=== PATIENT | female | born 1950 | race Hispanic/Latino ===

== ENCOUNTER → 2018-01-09 | Outpatient (CLI) | payer OTHER, MEDICARE ==
[~2018-01-09] MED LIST: ALEN70TA47 PO; ASPI-555 PO; CALC-866 PO; CALC600T12 PO; LINA5TAB PO; METF500T6 PO; SIMV10TA6 PO; VALS320T16 PO; VITA1CAP85 PO
== END | disposition home or self-care (01) ==
LOC: RAH 08:58
PROVIDERS: ATTEND Nurse Practitioner Family
DX: M79.651 Pain in right thigh (principal)
CPT/HCPCS: 73552

== ENCOUNTER → 2018-10-09 | Outpatient (CLI) | payer OTHER, MEDICARE ==
[~2018-10-09] MED LIST changes: +ALEN70TA10 PO; -ALEN70TA47 PO; +METF-444 PO; -METF500T6 PO
== END | disposition home or self-care (01) ==
LOC: RAH 13:10
PROVIDERS: ATTEND Internal Medicine
DX: M79.661 Pain in right lower leg (principal)
CPT/HCPCS: 73590

== ENCOUNTER → 2023-04-01 | Outpatient (CLI) | payer OTHER, MEDICARE ==
[~2023-04-01] MED LIST changes: -ALEN70TA10 PO; +ALEN70TA80 PO; -ASPI-555 PO; +ASPI-556 PO; +CALC-1125 PO; -CALC600T12 PO; -SIMV10TA6 PO; +SIMV10TA97 PO
== END | disposition home or self-care (01) ==
LOC: RAH 15:12
PROVIDERS: ATTEND Clinical Nurse Specialist Family Health
DX: M25.512 Pain in left shoulder (principal); S40.012S Contusion of left shoulder, sequela; X58.XXXS Exposure to other specified factors, sequela
CPT/HCPCS: 73030; 73060